=== PATIENT | male | born 1970 | race Caucasian/White ===

== ENCOUNTER 2021-01-15 10:33 | Outpatient (CLI) | payer BC, SELFPAY ==
[2021-01-15 11:41] LABS: Basophils Absolute Auto 0.1 K/mm3 (0.0-0.1); Basophils Percent Auto 0.9 % (0.2-1.2); Eosinophils Absolute Auto 0.1 K/mm3 (0-0.3); Eosinophils Percent Auto 1.4 % (0-4.4); Hematocrit 42.5 % (42.0-52.0); Hemoglobin 13.9 g/dL (14.0-18.0); Immature Granulocyte Absolute 0.02 K/mm3 (0.00-0.031); Immature Granulocyte Percent A 0.3 % (0-0.5); Lymphocytes Absolute Auto 1.63 K/mm3 (0.9-3.2); Lymphocytes Percent Auto 23.3 % (18.3-44.2); Mean Corpuscular HGB Conc 32.7 g/dl (32-36); Mean Corpuscular Hemoglobin 29.3 pg (26-34); Mean Corpuscular Volume 89.7 fl (80-100); Mean Platelet Volume 9.1 fl (7.4-10.4); Monocytes Absolute Auto 0.7 K/mm3 (0.1-0.6); Monocytes Percent Auto 9.4 % (2.6-8.5); Neutrophils Absolute Auto 4.5 K/mm3 (1.3-6.7); Neutrophils Percent Auto 64.7 % (45.5-73.1); Platelet Count Result 355 k/mm3 (150-375); Red Blood Count 4.74 M/mm3 (4.6-6.20); Red Cell Distribution Width 11.7 % (11.5-14.5)
[2021-01-15 11:51] LABS: Alanine Aminotransferase 18 U/L (4-50); Albumin Level 4.5 g/dL (3.5-5.1); Alkaline Phosphatase 61 U/L (38-126); Amylase 43 U/L (30-110); Anion Gap 7 mmol/L (8-16); Aspartate Amino Transferase 25 U/L (17-59); Bilirubin,Total 0.3 mg/dL (0.2-1.3); Blood Urea Nitrogen 16 mg/dL (9-20); Calcium 9.9 mg/dL (8.4-10.2); Carbon Dioxide 32 mmol/L (22-30); Chloride 101 mmol/L (98-107); Estimated Glomerular Filt Rate > 60; Glucose 91 mg/dL (75-110); Lipase 104 U/L (23-300); Potassium 4.2 mmol/L (3.4-5.0); Sodium 140 mmol/L (137-145)
[2021-01-15 11:55] LABS: Add Urine Microscopic? YES; Amorphous Sediment Urine Moderate; Appearance Urine Cloudy (Clear); Bacteria Urine Trace /hpf; Bilirubin Urine Negative (Negative); Blood Urine Negative (Negative); Color Urine Amber (Yellow); Glucose Urine UA Negative (Negative); Ketones Urine Negative (Negative); Leukocyte Esterase Ur Negative LEU/UL (NEGATIVE); Mucus Urine Rare /lpf; Nitrate Urine Negative (Negative); Protein Urine 1+ mg/dL (Negative); RBC Urine 0-2 /hpf (0-2); WBC Urine 0-3 /hpf (0-3)
[2021-01-15 12:21] LABS: Thyroid Stimulating Hormone 0.814 uIU/mL (0.465-4.680)
== END 2021-01-15 10:34 | disposition home or self-care (01) ==
PROVIDERS: PCP Family Medicine; Visit Provider Physician Assistant
DX: R10.9 Unspecified abdominal pain (principal)
CPT/HCPCS: 36415; 80053; 81001; 82150; 83690; 84443; 85025; 87086

== ENCOUNTER → 2021-04-06 10:17 | Outpatient (CLI) | payer BC, SELFPAY ==
--- NOTE | ~2021-04-06 | US_ITS ---
EXAMINATION: US abdomen complete EXAM DATE: 04/06/2021 10:52 INDICATION: R10.9 - Unspecified abdominal pain. TECHNIQUE: Multiple grayscale and Doppler images of the complete abdomen were obtained (by a technolo gist who performed the scan) and subsequently reviewed. There is no prior study for comparison. FINDINGS: The abdominal aorta is normal in caliber. Visualized portion IVC is patent. The pancreatic head a nd body are normal in appearance. The pancreatic tail is not visualized. The liver has normal echogenicity and contour. There are no focal liver lesions identified. There is no evidence of intrahepatic biliary duct dilation. Portal venous flow was seen in the hepatopedal , normal direction and has normal Doppler waveform. Common bile duct measures 5 mm, which is normal. The gallbladder wall is normal in thickness, with ex pected amount of distention. No sonographic evidence of pericholecystic fluid. Scattered tiny gallb ladder polyps not likely clinically significant, measuring up to 4 mm in size. Technologist performi ng exam reports patient did not demonstrate sonographic Block's sign. Please note that this sign is less reliable in patients who have received pain medication. Right kidney: There is normal contour and echogenicity. It measures 11.1 x 4.4 x 4.9 centimeters. There are no focal renal lesions identified. There is no hydronephrosis. Left kidney: There is normal contour and echogenicity. It measures 10.5 x 6.0 x 4.3 centimeters. T here are no focal renal lesions identified. There is no hydronephrosis. The spleen measures 10 centimeters and is morphologically normal. IMPRESSION: 1. Tiny gallbladder polyps not likely clinically significant. 2. Otherwise unremarkable exam. Reviewed, dictated and finalized at location A.
== END ==
PROVIDERS: Visit Provider Physician Assistant
DX: R10.9 Unspecified abdominal pain (principal); R11.2 Nausea with vomiting, unspecified
CPT/HCPCS: 76700

== ENCOUNTER 2022-04-20 15:53 | Outpatient (CLI) | payer BC, SELFPAY ==
--- NOTE | ~2022-04-20 | XR_ITS ---
XR elbow LT min 3V DATE: 04/20/2022 16:14 INDICATION: Injury/contusion of posterior elbow 2 weeks ago TECHNIQUE: 4 views COMPARISON: None FINDINGS: No fracture or dislocation, periosteal reaction or bone destruction. IMPRESSION: Negative Reviewed, dictated and finalized at location A. IMPRESSION: Negative
== END 2022-04-20 15:54 | disposition home or self-care (01) ==
PROVIDERS: PCP Family Medicine; Visit Provider Nurse Practitioner Family
DX: S50.00XA Contusion of unspecified elbow, initial encounter (principal); M25.422 Effusion, left elbow
CPT/HCPCS: 73080

== ENCOUNTER 2022-09-19 14:23 | Outpatient (CLI) | payer BC, SELFPAY ==
[2022-09-19 14:56] LABS: Influenza Control Positive
== END 2022-09-19 14:24 | disposition home or self-care (01) ==
LOC: ANHLAB 14:25
PROVIDERS: Physician Assistant; PCP Family Medicine; Visit Provider Family Medicine
DX: R05.9 Cough, unspecified (principal); R68.89 Other general symptoms and signs
CPT/HCPCS: 87804

== ENCOUNTER 2024-05-27 16:26 | Emergency (ER) | payer BC, SELFPAY ==
[2024-05-27 16:36] VITALS: BP 120/75; PULSE 79; RESP 14; TEMP 36.4; O2SAT 99
--- NOTE | 2024-05-27 16:47 | ED.GENADULT ---
HPI - General Adult General Chief complaint: Unspecified Stated complaint: Heart Problems Source: patient Mode of arrival: ambulatory Limitations: no limitations History of Present Illness HPI narrative: 53 y/o male presents with c/o intermittent palpitations x7-10 days. Endorses a flutter in his chest that will last about a second and is sporadic, not associated with activity, rest, or recumbency. The fluttering occurs approximately 6-10 times a day. Denies increased stress or recent illness. He denies significant caffeine intake, smoking or recreational drug use. and drinks socially on the weekends. He denies any chest/jaw/shoulder/back pain, shortness of breath, cough, nausea/vomiting, sweating or dizziness. Related Data Home Medications Medication Instructions Recorded Confirmed No Home Medications 05/27/24 05/27/24 Allergies Allergy/AdvReac Type Severity Reaction Status Date / Time No Known Allergies Allergy Mild Verified 05/27/24 16:34 Review of Systems Review of Systems: CONSTITUTIONAL: Denies body aches, fever, chills, or sweats. EYES: Denies visual changes, redness, or discharge. ENT: Denies rhinorrhea, congestion, sore throat, or otalgia. CARDIOVASCULAR: Denies chest pain or edema. Reports palpitations. RESPIRATORY: Denies cough or dyspnea. GASTROINTESTINAL: Denies abdominal pain, nausea, vomiting, or diarrhea. SKIN: Denies rash, itching, or wounds. MUSCULOSKELETAL: Denies back pain, joint pain, or myalgia. NEUROLOGIC: Denies headache, dizziness, numbness, tingling, or weakness. All systems reviewed & are unremarkable except as noted in HPI and below PMFSH Past Medical History Medical History (Updated 05/27/24 @ 17:27 by Iza Atkins APRN) Ankylosing spondylitis Anxiety HLA-B27 positive Social History Social History Smoking status: Never smoker Second hand tobacco smoke exposure: No Alcohol intake: current Drinks per week: 4 Substance use: never Substance use type: does not use Living arrangements: with family Occupation/Education: occupation Gender identity (if verbalized by the patient): Male Comments At time of signature, I have reviewed and agree with nursing past medical, surgical, social and family history unless otherwise noted. Please see nursing chart for further information. There is no relevant family history pertinent to the presenting complaint Exam Narrative: GENERAL: Well-appearing, well-nourished, and in no acute distress. HEAD: Normocephalic, atraumatic. EYES: EOMI. No redness or drainage. Conjunctivae normal. ENT: Mucous membranes pink and moist. No rhinorrhea. NECK: Normal AROM. Supple. CHEST: No respiratory distress. Clear to auscultation. HEART: Regular rate and rhythm. No murmur appreciated. Normal peripheral pulses. EXTREMITIES: Normal range of motion. No edema. SKIN: Warm, dry, no rash. Capillary refill normal. Normal skin turgor. NEURO: No focal deficits. Alert and oriented x3. Gait steady. PSYCH: Normal affect. Course Course Emergency Course: Patient is aware of diagnosis, understands and agrees to treatment plan. Anticipatory guidance given. Patient agrees to follow-up as directed and is aware of reasons to seek care at the emergency department. Portions of this record may have been created with voice recognition software Level of Care: Express Care Visit Vital Signs Vital signs: Vital Signs Temperature 97.6 F 05/27/24 16:36 Pulse Rate 79 05/27/24 16:36 Respiratory Rate 14 05/27/24 16:36 Blood Pressure 120/75 05/27/24 16:36 Pulse Oximetry 99 05/27/24 16:36 Oxygen Delivery Room Air 05/27/24 16:36 Temperature 97.6 F 05/27/24 16:36 Pulse Rate 79 05/27/24 16:36 Respiratory Rate 14 05/27/24 16:36 Blood Pressure 120/75 05/27/24 16:36 Pulse Oximetry 99 05/27/24 16:36 Oxygen Delivery Room Air 05/27/24 16:36
--- NOTE | 2024-05-27 17:13 | ECG_ITS ---
Test Date: 2024-05-27 16:50:33 Measurements Intervals Savage Rate: 70 P: 67 OH: 166 QRS: 50 QRSD: 108 T: 33 QT: 372 QTc: 402 Interpretive Statements SINUS RHYTHM LOW QRS VOLTAGE IN PRECORDIAL LEADS INCOMPLETE RIGHT BUNDLE BRANCH BLOCK BORDERLINE ECG No previous ECG available for comparison Electronically Signed On 05-28-2024 06:18:17 CDT by Say Stern D.O.
== END 2024-05-27 17:12 | disposition home or self-care (01) ==
PROVIDERS: Emergency Provider Nurse Practitioner Family; PCP Family Medicine
DX: R00.2 Palpitations (principal); M45.9 Ankylosing spondylitis of unspecified sites in spine
CPT/HCPCS: 93005; 99213; G0463

== ENCOUNTER 2024-06-17 11:02 | Outpatient (CLI) | payer BC, SELFPAY ==
--- NOTE | 2024-06-20 16:31 | WPDHOLTEREM ---
Holter/Event Monitor Holter/Event Monitor Date of procedure: 06/17/24 Holter/Event Procedure: 48 Hr Holter Monitor Indications: Palpitations Conclusion: 1. 48 hour holter monitor on 06/17/24. 2. Underlying rhythm is sinus rhythm. HR range 51-109 bpm; average HR 73 bpm. 3. There are 16 premature supraventricular complexes and 1 supraventricular couplet. No supraventricular tachycardia. 4. There are 197 premature ventricular complexes and ventricular couplet. No ventricular tachycardia. 5. No sinoatrial or atrioventricular blocks. No significant pauses greater than 2 seconds. 6. Patient reports symptoms of flutter, skipped beat which demonstrate sinus rhythm, HR range 66-87 bpm and 2 episodes with PVC.
== END 2024-06-17 11:03 | disposition home or self-care (01) ==
LOC: ANHCARD 11:05
PROVIDERS: PCP Family Medicine; Visit Provider Physician Assistant Medical
DX: R00.2 Palpitations (principal)
CPT/HCPCS: 93225; 93226

== ENCOUNTER 2024-07-12 08:34 | Emergency (ER) | payer BC, SELFPAY ==
[2024-07-12 08:39] VITALS: BP 109/77; PULSE 80; RESP 16; TEMP 36.3; O2SAT 99
--- NOTE | 2024-07-12 08:40 | ED.URI ---
HPI - URI/Sore Throat General Chief Complaint: Upper Respiratory Infection Stated Complaint: SORE THROAT Time Seen by Provider: 07/12/24 08:40 Source: patient Mode of arrival: ambulatory Limitations: no limitations History of Present Illness HPI Narrative: Jagdeep is a 54-year-old male patient presenting to the clinic today with complaints of sore throat, nasal congestion, and some body aches. He reports symptoms started on Monday. Has taken 2 at home COVID test 1 on Monday and 1 on and both were negative. He would like strep, COVID, and influenza testing today in the office. He denies any chest pain or shortness of breath. Rates the body aches is 6/10 currently. MD elicited complaint: sore throat and nasal congestion Related Data Home Medications Medication Instructions Recorded Confirmed metoprolol succinate 25 mg 7.5 mg PO DAILY 07/12/24 07/12/24 tablet,extended release 24 hr Allergies Allergy/AdvReac Type Severity Reaction Status Date / Time No Known Allergies Allergy Mild Verified 07/12/24 08:48 Review of Systems Review of Systems: Pertinent positives per HPI. Patient denies any fever, chills, rash, headache, visual changes, dizziness, cough, shortness of breath, chest pain, palpitations, nausea, vomiting, diarrhea, constipation, abdominal pain, or any urinary issues. [facility] Past Medical History Medical History Ankylosing spondylitis Anxiety HLA-B27 positive Social History Social History Smoking status: Never smoker Second hand tobacco smoke exposure: No Alcohol intake: current Drinks per week: 4 Substance use: never Substance use type: does not use Do You Feel Safe in your Home?: Yes Lack of Transportation: No Lack of Food: Never True Current Housing: I Have Housing Concerned About Future Housing: No Difficulty Paying Gas/Electric Bills: No Difficulty Paying for Meds: No Currently Unemployed: No Education: Master's Degree or Higher Difficulty w/ Childcare or Family Care: No Living arrangements: with family Occupation/Education: occupation Gender identity (if verbalized by the patient): Male Comments At the time of my signature, I reviewed and agree with the nursing past medical, surgical, social, and family history. There is no relevant family history pertinent to the patient complaint. Exam Narrative: General: Well-developed, well nourished, in no apparent distress Head: Normocephalic, atraumatic Eyes: Pupils equally round and reactive to light bilaterally, EOM intact, sclera and conjunctive clear, no discharge, lids normal Ears: TMs intact and clear, ear canals clear, no drainage, grossly hearing normal. Nose: Nares patent, clear nasal discharge, no inflammation, no sinus tenderness. Mouth: Oral pharynx mildly red without lesions or masses, good dentition, MMM. Neck: Supple, trachea midline, no enlargement of anterior or posterior cervical nodes, no thyroid masses or goiter palpable. Cardio: Regular rate and rhythm, s1 and s2 normal, no murmur appreciated. Resp: Clear to auscultation bilaterally, no rhonchi, rales, wheezing or rubs Course Course Emergency Course: Portions of this record may have been created with voice recognition software. Level of Care: Express Care Visit Vital Signs Vital signs: Vital signs reviewed MDM - URI/Sore Throat MDM Narrative Medical decision making narrative: At the time of visit patient is resting comfortably on the exam table. Patient appears to be nontoxic. Labs: COVID testing, influenza, and strep test were performed in the clinic today. COVID testing was positive. Strep and influenza testing was negative. We will send strep for culture. Plan: I suspect patient has COVID. Supportive measures were discussed with the patient and they voiced understanding discharge i
[2024-07-12 08:56] LABS: EDSTREPNEGPOS1 Negative (Negative)
[2024-07-12 09:00] LABS: EDCOVIDSCREEN Positive (Negative); EDINFLUASCREEN Negative (Negative); EDINFLUBSCREEN Negative (Negative)
== END 2024-07-12 09:10 | disposition home or self-care (01) ==
PROVIDERS: Emergency Provider Nurse Practitioner Family; PCP Family Medicine
DX: U07.1 COVID-19 (principal)
CPT/HCPCS: 87081; 87635; 87804; 87880; 99213; G0463

== ENCOUNTER 2024-12-20 05:12 | Day surgery (SDC) | payer BC, SELFPAY ==
[2024-12-05 09:27] VITALS: BMI 22.3
--- OUTSIDE RECORDS SUMMARY | 2024-12-20 05:15 | XMS_ITS | Clinical Summary ---
Author Organization [facility] [address] [facility] [address] Address [address] [place] [phone] Phone Care Team Providers Care Hearing Aid Assistant Name Role Phone Piter Cedeno MD Primary Care Provider Allergies No known active allergies Medications metoprolol XL (TOPROL-XL) 25 mg extended release tablet TAKE HALF A TABLET BY MOUTH ONCE DAILY 4 Active triamcinolone (KENALOG) 0.1 % cream Apply to affected area 1-2 times daily as needed. Avoid face and groin. 30 g 5 Active predniSONE (DELTASONE) 20 mg tablet Take 1 tablet (20 mg) by mouth daily for 5 days 5 tablet 5 11/28/19 25 Active Problems Problem Noted Date Diagnosed Date Chronic right shoulder pain 02/25/2022 Assessment & Plan (08/30/2022 3:37 PM CDT): Improved though not resolved, he will reschedule ortho follow up to review mri findings Assessment & Plan (02/25/2022 10:18 AM CDT): Follow up with ortho as planned, await mri. Will request records. Ankylosing spondylitis 07/25/2017 Overview (07/23/2018): Per MRI revealing fusion of SI joints. Positive HLA B27. Has stiffness>pain in mid/low back. Also with migratory peripheral joint pain in knees, feet with no synovitis. Previously on naproxen, ibuprofen, diclofenac with no benefit. Has flexeril 5 mg qHS which he uses prn which helps but he rarely uses. Schobers exam 10-14 cm, Occipitut to wall 0 cm. Has been doing PT which has helped with stiffness some. On SSZ 500 mg bid Pt wanting to hold off on anti-TNF inhib unless symptoms progress. Assessment & Plan (09/12/2024 4:05 PM BALLOON PILOT): Denies inflammatory sounding joint pain. He self dc'd his sulfasalazine in November of 2019 due to concerns about the long-term use of this medication. Overall has remained stable off treatment. He wishes to remain off treatment and monitor. At this time do recommend obtaining updated imaging to look for any signs of progression. Continue exercise/stretching routine. Plan for follow up in 1 year or sooner as needed should symptoms warrant. Assessment & Plan (09/05/2023 4:46 PM BALLOON PILOT): Denies inflammatory sounding joint pain. He self dc'd his sulfasalazine in November of 2019 due to concerns about the long-term use of this medication. Overall has remained stable off treatment. He wishes to remain off treatment and monitor. Continue exercise/stretching routine. Will now plan for follow up in 1 year or sooner as needed should symptoms warrant. Assessment & Plan (08/30/2022 3:37 PM CDT): Denies inflammatory sounding joint pain. He self dc'd his sulfasalazine in November of 2019 due to concerns about the long-term use of this medication. Overall has remained stable off treatment for 2.5 years. He wishes to remain off treatment and monitor. Continue exercise/stretching routine. Will now plan for follow up in 1 year or sooner as needed should symptoms warrant. Assessment & Plan (02/25/2022 10:17 AM CDT): Denies inflammatory sounding joint pain. Uncertain of the etiology of this rib pain, however he states that overall it is mild and does not feel it warrants anything additional. He self dc'd his sulfasalazine ~2 years ago due to concerns about the long-term use of this medication, overall feels stable. He wishes to remain off treatment and monitor closely, he will call if symptoms flare. Continue exercise/stretching routine. Follow up 6 months or sooner as needed. Assessment & Plan (08/17/2021 3:40 PM CDT): Prior to the last month and a half, he felt stable without significant pain or stiffness. He self dc'd his sulfasalazine >18 months ago due to concerns about the long-term use of this medication. Discussed risk of a flare. He wishes to remain off treatment and monitor closely, he will call if symptoms persist. Continue exercise/stretching routine. Follow up 6 months or sooner as needed. Assessment & Plan (02/09/2021 4:10 PM CDT): Overall remains stable since last visit. Amol's improved compared to last visit. Normal occiput to wall. He self dc'd his sulfasalazine >12 months ago due to concerns about the long-term use of this medication. Discussed risk of a flare. He wishes to remain off treatment and monitor closely, he will call for any recurrence of pain or stiffness. Continue exercise/stretching routine. Follow up 6 months or sooner as needed. Assessment & Plan (08/11/2020 3:32 PM CDT): Overall remains stable since last visit. Amol's slightly reduced today compared to prior, though he reports feeling more stiff/sore today related to kayaking over the weekend. Normal occiput to wall. He self dc'd his sulfasalazine 8 months ago due to concerns about the long-term use of this medication. Discussed risk of a flare. He wishes to remain off treatment and monitor closely, he will call for any recurrence of pain or stiffness. Continue exercise/stretching routine. Flu vaccine today. Follow up 6 months or sooner as needed. Assessment & Plan (04/21/2020 4:00 PM CDT): Overall remains stable since last visit. Amol's stable and normal occiput to wall. He self dc'd his sulfasalazine after last visit and remains uncertain at this time of whether he would wish to resume this as he was felt very stable. He also expresses concerns about the long-term use of this medication. Discussed drug holidays and risk of a flare. He would like to consider this some and will let us know what he decides. If he remains off treatment, then he will monitor closely and call for any recurrence of pain or stiffness. Continue exercise/stretching routine. Will obtain labs as below. Follow up 4 months or sooner as needed. Assessment & Plan (12/24/2019 4:22 PM BALLOON PILOT): Overall remains stable since last visit. Amol's fairly stable at 14.3 cm, normal occiput to wall. Hurt his back over the weekend, taking Advil and conservative measures with some benefit, will use Flexeril 5 mg qHS prn as well. It is notable that he has been taking only 500 mg sulfasalazine daily for an uncertain period of time, he would like to increase to the prescribed dose of 1000 mg daily for a few months to see if this provides greater benefit. Continue exercise/stretching routine. Will obtain labs as below. Follow up 4 months or sooner as needed. Assessment & Plan (08/27/2019 4:28 PM CDT): Is doing well clinically with minimal complaints at baseline other than occasional stiffness in mid/low back. Amol's stable, normal occiput to wall. In the last two weeks new discomfort in bilateral feet for which he was prescribed a Medrol dosepak with modest benefit; by exam he has no reproducible tenderness and no synovitis. Discussed that the lack of significant response to steroids goes against inflammatory etiology, though may not have been sufficient dose/course. Will monitor for now, if pain persists pt states that his PCP had planned xrays, discussed that we may also consider a foot/ankle ultrasound to look for inflammatory changes --- he will call if symptoms persist/worsen after completing the Medrol Dosepak. Continue sulfasalazine 1000 mg daily. Continue flexeril 5 mg prn which he rarely requires. Continue exercise/stretching routine. Will obtain labs as below. Follow up 4 months or sooner as needed. Assessment & Plan (04/23/2019 4:54 PM CDT): Is doing well clinically with minimal complaints at baseline other than occasional stiffness in mid/low back. Amol's stable, normal occiput to wall. In the last week new L shoulder discomfort which pt states is mild and he would rather monitor for now, discussed judicious use of naproxen if needed - he will call/follow up if the pain persists. Continue sulfasalazine 1000 mg daily. Continue flexeril 5 mg prn which he rarely requires. Continue exercise/stretching routine. Will obtain labs as below. Follow up 4 months or sooner as needed. Assessment & Plan (11/26/2018 2:32 PM BALLOON PILOT): Is doing well clinically with minimal complaints other than occasional stiffness in mid/low back. Denies peripheral joint complaints. Is doing yoga and stretching exercises routinely. Exam is unremarkable and is noted Amol's exam is 10-15 cm which is stable from prior. Continue sulfasalazine 1000 mg daily. Continue flexeril 5 mg prn which he rarely requires. Is noted pt not requiring any analgesics. Continue exercise/stretching routine. Will obtain labs as below. Follow up 4 months. Assessment & Plan (07/23/2018 2:46 PM CDT): Is doing well clinically with minimal complaints other than occasional stiffness in mid/low back. Denies peripheral joint complaints. Is doing yoga and stretching exercises routinely. Exam is unremarkable and is noted Amol's exam is 10-15 cm which is improved by 0.5 cm compared to last visit. Continue sulfasalazine 1000 mg daily. Continue flexeril 5 mg prn which he rarely requires. Is noted pt not requiring any analgesics. Continue exercise/stretching routine. Will obtain labs as below. Follow up 4 months. Assessment & Plan (03/29/2018 3:13 PM CDT): He remains stable clinically with minimal complaints other than occasional stiffness is his low back. He is doing very well sulfasalazine which was decreased to 500 mg b.i.d. as he was doing so well. He does have Flexeril although rarely takes this. Is noted Amol's exam is stable at 14.5 cm which is slightly improved from last visit. Continue sulfasalazine 500 mg b.i.d.. Could consider addition of an oral NSAID although as he has tried naproxen diclofenac and ibuprofen in the past with no benefit will defer at this time. Cont flexeril 5 mg prn which he rarely requires. Obtain labs as below. Follow-up in 3 months. Encounters Date Type Department Care Team Description 11/23/2024 7:30 PM BALLOON PILOT Office Visit [facility] at [address] [phone] Kirsten Joya PA Rash (Primary Dx) from Last 3 Months Immunizations Immunization Administration Dates Next Due Influenza, Quadrivalent, Niya l Culture-based MDCK, Antibiotic Free, Intramuscular 08/11/2020,08/27/2019 Social History Tobacco Use Types Packs/Day Years Used Date Smoking Tobacco: Never Smokeless Tobacco: Never Tobacco Cessation:Counseling Given: Not Answered Alcohol Use Standard Drinks/Week Comments Yes 0 (1 standard drink = 0.6 oz pur e alcohol) Sex and Gender Information Value Date Recorded Sex Assigned at Not on file Legal Sex Male 10:14 AM BALLOON PILOT Gender Identity Not on file Sexual Orientation Not on file Obstetrics History Last Filed Vital Signs Vital Sign Reading Time Taken Comments Blood Pressure 120/80 11/23/2024 7:48 PM BALLOON PILOT Pulse 76 11/23/2024 7:48 PM BALLOON PILOT Temperature 37.1 C (98.8 F) 11/23/2024 7:48 PM BALLOON PILOT Respiratory Rate 18 11/23/2024 7:48 PM BALLOON PILOT Oxygen Saturation 99% 11/23/2024 7:48 PM BALLOON PILOT Inhaled Oxygen Concentration - - Weight 76.9 kg (169 lb 9.6 oz) 11/23/2024 7:48 P M BALLOON PILOT Height 181.6 cm (5' 11.5 ) 11/23/2024 7:48 PM CS T Body Mass Index 23.33 11/23/2024 7:48 PM BALLOON PILOT Plan of Treatment Health Maintenance Due Date Last Done Comments Colon Cancer Screening-Colonoscopy 1968 Depression Screening 1968 DTaP/Tdap/Td Vaccine (1 - Tdap) 1979 Hepatitis B Screening 1986 Regular Well Visit/Exam 18-64 1986 Zoster Vaccine (1 of 2) 2018 Prostate Cancer Screening-PSA 02/26/2024 02/25/2022 Influenza Vaccine (#1) 2024 08/11/2020, 2018 Hepatitis C Screening Completed 09/27/2016 , 09/27/2016, 09/27/2016, Additional history exists Pneumococcal vaccine <65 Aged Out No longer eligible based on patient's age to complete this topic Procedures Procedure Name Priority Date/Time Associated Diagnosis Comments PSA SCREEN Routine 02/25/2022 9:39 AM CDT Screening PSA (prostate specific antigen) HEPATITIS PANEL, ACUTE Routine 09/27/2016 2:44 PM BALLOON PILOT from Last 3 Months or Most Recently Relevant to Health Maintenance Results * PSA screen (02/25/2022 9:39 AM CDT) [facility] PSA 0.91 < OR = 4.00 ng/mL [facility] Comment: The total PSA value from this assay system is standardized against the WHO standard. The test result will be approximately 20% lower when compared to the equimolar-standardized total PSA ([facility] [place]). Comparison of serial PSA results should be interpreted with this fact in mind. This test was performed using the Siemens chemiluminescent method. Values obtained from different assay methods cannot be used interchangeably. PSA levels, regardless of value, should not be interpreted as absolute evidence of the presence or absence of disease. Blood specimen (specimen) 02/25/2022 9:39 AM CDT 02/25/2022 9:39 AM CDT [facility] BLOOD ORDERABLES Louise l Result [facility] [address] [place] [address] * Hepatitis panel, acute (09/27/2016 2:44 PM BALLOON PILOT) [facility] Hep A IgM NON-REACT BREANNA NON-REACT BREANNA [facility] HISTORICAL RESULTS Comment: Test performed at [facility] [place] [address] [facility] [place] [address] Director: KAY SQUIRES DO,MPH 09/27/2016 2:44 PM BALLOON PILOT Renzo Vargas MD LAB MICROBIOLOGY - GENER AL ORDERABLES Final Result [facility] HISTORICAL RESULTS from Last 3 Months or Most Recently Relevant to Health Maintenance Insurance [facility] Member Subscriber Plan / Payer ( fective 2008-Present) Name:Seth Mitchell Relation to Subscriber:Self Name:Seth Mitchell Payer ID:[id number] (NAIC) Group ID:[id number] Type:BC [employer] Address: [facility] [id number] [place] [id number] Care Teams Hearing Aid Assistant Relationship Specialty Start Date End Date Piter Cedeno MD [address] [place] [id number] PCP - General 01/27/17
--- OUTSIDE RECORDS SUMMARY | 2024-12-20 05:15 | XMS_ITS | Clinical Summary ---
Author Organization [facility] Address [address] [place] [address] Care Team Providers Care Granite Setter Name Role Phone Unavailable Primary Care Provider Unavailabl e Social History Tobacco Use Types Packs/Day Years Used Date Smoking Tobacco: Never Assessed Sex and Gender Information Value Date Recorded Sex Assigned at Not on file Legal Sex Male 5:33 PM CDT Gender Identity Not on file Sexual Orientation Not on file Plan of Treatment Health Maintenance Due Date Last Done Comments Colorectal Cancer Screening Colonoscopy (10 Years) 1968 Annual Physical 1971 Hepatitis C 1986 DTaP, Tdap and Td Vaccines ( 1 - Tdap) 1987 Hepatitis B Vaccines (1 of 3 - 19+ 3-dose series) 1987 Zoster Vaccines (1 of 2) 2018 COVID-19 Vaccine (2023-2 5 season) 2024 Influenza Adult (#1) 2024 Meningococcal B Vaccine Aged Out No l onger eligible based on patient's age to complete this topic Meningococcal Vaccine Aged Out No alvaro elliot eligible based on patient's age to complete this topic Pneumococcal Vaccine: Pediat rics (0 to 5 Years) and At-Risk Patients (6 to 64 Years) Aged Out No longer eligible b ased on patient's age to complete this topic RSV Immunizations Under 20 Months Aged Out No longer eligible based on patient's age to complete this topic
--- OUTSIDE RECORDS SUMMARY | 2024-12-20 05:15 | XMS_ITS | Referral Summary ---
Author Organization [facility] [address] [facility] Address [address] [place] [phone] Phone Care Team Providers Care Records Management Analyst Name Role Phone Piter Cedeno MD Primary Care Provider Encounters Date Type Department Care Team Description 11/23/2024 7:30 PM DOWN FILLER Office Visit [facility] at [address] [phone] Kirsten Joya PA Rash (Primary Dx) from Last 3 Months Allergies No known active allergies Medications metoprolol [...] progress. Assessment & Plan (09/12/2024 4:05 PM DOWN FILLER): Denies inflammatory sounding joint pain. He self [...] warrant. Assessment & Plan (09/05/2023 4:46 PM DOWN FILLER): Denies inflammatory sounding joint pain. He self [...] needed. Assessment & Plan (12/24/2019 4:22 PM DOWN FILLER): Overall remains stable since last visit. Amol's [...] other than occasional stiffness in mid/low back. Maol's stable, normal occiput to wall. In the [...] needed. Assessment & Plan (11/26/2018 2:32 PM DOWN FILLER): Is doing well clinically with minimal complaints [...] labs as below. Follow-up in 3 months. Immunizations Immunization Administration Dates Next Due Influenza, [...] on file Legal Sex Male 10:14 AM DOWN FILLER Gender Identity Not on file Sexual Orientation Not on file Last Filed Vital Signs Vital Sign Reading Time Taken Comments Blood Pressure 120/80 11/23/2024 7:48 PM DOWN FILLER Pulse 76 11/23/2024 7:48 PM DOWN FILLER Temperature 37.1 C (98.8 F) 11/23/2024 7:48 PM DOWN FILLER Respiratory Rate 18 11/23/2024 7:48 PM DOWN FILLER Oxygen Saturation 99% 11/23/2024 7:48 PM DOWN FILLER Inhaled Oxygen Concentration - - Weight 76.9 kg (169 lb 9.6 oz) 11/23/2024 7:48 P M DOWN FILLER Height 181.6 cm (5' 11.5 ) 11/23/2024 7:48 PM CS T Body Mass Index 23.33 11/23/2024 7:48 PM DOWN FILLER Plan of Treatment Not on file Procedures Procedure Name Priority Date/Time Associated Diagnosis Comments PSA SCREEN Routine 02/25/2022 9:39 AM CDT Screening PSA (prostate specific antigen) HEPATITIS PANEL, ACUTE Routine 09/27/2016 2:44 PM DOWN FILLER from Last 3 Months or Most Recently Relevant to Health Maintenance Results * PSA screen (02/25/2022 9:39 AM CDT) [facility] PSA 0.91 < OR = 4.00 ng/mL [facility] Comment: The total PSA value from this assay system is standardized against the WHO standard. The test result will be approximately 20% lower when compared to the equimolar-standardized total PSA ([place] [place]). Comparison of serial PSA results should be [...] [facility] BLOOD ORDERABLES Louise l Result Performing Organization Address City/[facility]/ZIP Co de Phone Number [facility] [employer] [phone] * Hepatitis panel, acute (09/27/2016 2:44 PM DOWN FILLER) [facility] [address] Hep A IgM NON-REACT BREANNA NON-REACT BREANNA [facility] HISTORICAL RESULTS Comment: Test performed at [employer] [place] [id number] [place] [address] Director: KAY SQUIRES DO,MPH 09/27/2016 2:44 PM DOWN FILLER Renzo Vargas MD LAB MICROBIOLOGY - GENER AL ORDERABLES Final Result [facility] HISTORICAL RESULTS from Last 3 Months or Most Recently Relevant to Health Maintenance Insurance [facility] [employer] [facility] FED[employer]AL Care Teams Records Management Analyst Relationship Specialty Start Date End Date Piter Cedeno MD [address] [facility] [address] [place] [address] PCP - General 01/27/17
[2024-12-20 08:18] VITALS: BP 104/79; PULSE 81; RESP 20; TEMP 36.6; O2SAT 100; BMI 22.2
[2024-12-20] MEDS: LACTATED RINGERS 1,000 ML 150 ML IV CONT (08:31)
--- NOTE | 2024-12-20 08:42 | WPDANESEPPF ---
Anes - Initial Pre Proc Eval Procedure: Operation Date: 12/20/24 09:30 Proposed Procedures p Screening Colonoscopy - Brando Hutchinson MD Date/Time: 12/20/24 08:42 Surgeon: Brando Hutchinson MD Pre Op Diagnosis: screening malignant neoplasm of colon Patient Data Age: 54 Gender: M Height: 1.8 m Weight: 72.3 kg Last Vital Signs Temp 36.6 C 12/20/24 08:18 Pulse 81 12/20/24 08:18 Resp 20 12/20/24 08:18 BP 104/79 12/20/24 08:18 Pulse Ox 100 12/20/24 08:18 O2 Del Method Room Air 12/20/24 08:18 Allergies Allergy/AdvReac Type Severity Reaction Status Date / Time No Known Allergies Allergy Mild Verified 12/20/24 08:18 Home Medications ?Medication ?Instructions ?Recorded ?Confirmed ?Type metoprolol succinate 25 mg 7.5 mg PO DAILY 07/12/24 12/20/24 History tablet,extended release 24 hr Patient hx anesthesia problems: none Family hx anesthesia problems: none Results Review: All pre-operative results and documents have been reviewed as part of the pre-operative evaluation. [facility] Past Medical History Medical History (Updated 12/20/24 @ 09:08 by Brando Hutchinson MD) Colon cancer screening DEEP (obstructive sleep apnea) Rheumatoid arthritis PVC (premature ventricular contraction) HLA-B27 positive Anxiety Ankylosing spondylitis Social History Social History Smoking status: Never smoker Second hand tobacco smoke exposure: No Alcohol intake: current Drinks per week: 4 Substance use: never Substance use type: does not use Do You Feel Safe in your Home?: Yes Lack of Transportation: No Lack of Food: Never True Current Housing: I Have Housing Concerned About Future Housing: No Difficulty Paying Gas/Electric Bills: No Difficulty Paying for Meds: No Currently Unemployed: No Education: Master's Degree or Higher Difficulty w/ Childcare or Family Care: No Living arrangements: with family Occupation/Education: occupation Gender identity (if verbalized by the patient): Male Anes - Eval Final PreProcedure Day of Procedure 12/20/24 08:42 Patient weight: normal Heart: regular rate and rhythm Lungs: clear to auscultation and normal air movement Airway: Mallampati scale class II Neurological: alert and oriented Last oral intake: >/= 8 hours ASA classification: III Emergent: no Anesthetic plan: proceed Anesthesia type and monitoring: general GIVS and standard monitoring Results Review: All pre-operative results and documents have been reviewed as part of the pre-operative evaluation. Informed Consent: The patient's anesthetic plan and its attendant risks and benefits were discussed with the patient/family/POA. Questions were solicited and answers provided to the satisfaction of the patient/family/POA.
--- NOTE | 2024-12-20 09:07 | PM.HPGS ---
History of Present Illness History of Present Illness Consent: Risks, benefits, and alternatives have been discussed and questions answered. Patient agrees to proceed with procedure. Chief complaint: screening malignant neoplasm of colon Narrative: Seth Mitchell is a 54 year old male here for screening colonoscopy, last one 2013 Review of Systems Review of Systems: All systems reviewed & are unremarkable except as noted in HPI and below PMFSH Past Medical History Medical History (Updated 12/20/24 @ 09:08 by Brando Hutchinson MD) Colon cancer screening DEEP (obstructive sleep apnea) Rheumatoid arthritis PVC (premature ventricular contraction) HLA-B27 positive Anxiety Ankylosing spondylitis Social History Social History Smoking status: Never smoker Second hand tobacco smoke exposure: No Alcohol intake: current Drinks per week: 4 Substance use: never Substance use type: does not use Do You Feel Safe in your Home?: Yes Lack of Transportation: No Lack of Food: Never True Current Housing: I Have Housing Concerned About Future Housing: No Difficulty Paying Gas/Electric Bills: No Difficulty Paying for Meds: No Currently Unemployed: No Education: Master's Degree or Higher Difficulty w/ Childcare or Family Care: No Living arrangements: with family Occupation/Education: occupation Gender identity (if verbalized by the patient): Male Meds Home Medications and Allergies Home Medications ?Medication ?Instructions ?Recorded ?Confirmed ?Type metoprolol succinate 25 mg 7.5 mg PO DAILY 07/12/24 12/20/24 History tablet,extended release 24 hr Allergies Allergy/AdvReac Type Severity Reaction Status Date / Time No Known Allergies Allergy Mild Verified 12/20/24 08:18 Vital Signs Vital Signs - 24 hr 12/20/24 08:18 Temperature 98 F Pulse Rate 81 Respiratory Rate 20 Blood Pressure 104/79 Pulse Oximetry 100 Oxygen Delivery Room Air Exam Const: General: comfortable and no acute distress HENMT: Face/Nose/Sinus: Normal nares present Eyes: General: appearance normal, both eyes and all related structures Neck: Neck: no JVD Resp: Auscultation: clear to auscultation bilaterally Cardio: Rate: regular rate Rhythm: regular rhythm GI: Inspection: non-distended GI Palp: Yes Soft to palpation Skin: General skin exam: normal color Neuro: General: gait normal Speech: normal speech Extrem: General: normal to inspection Psych: Mental Status: mental status grossly normal Assessment and Plan Assessment and plan (1) Colon cancer screening: Code(s): Z12.11 - Encounter for screening for malignant neoplasm of colon Status: Acute Assessment and Plan: colonoscopy
[2024-12-20 09:22] VITALS: BP 95/59; PULSE 66; RESP 14; O2SAT 100
[2024-12-20 09:32] VITALS: BP 95/57; PULSE 65; RESP 19; O2SAT 100
[2024-12-20 09:42] VITALS: BP 101/67; PULSE 68; RESP 24; O2SAT 100
== END 2024-12-20 09:56 | disposition home or self-care (01) ==
PROVIDERS: PCP Family Medicine; Referring Provider Physician Assistant; Visit Provider Internal Medicine Gastroenterology
PROC: 0DJD8ZZ Inspection of Lower Intestinal Tract, Via Natural or Artificial Opening Endoscopic (ICD-10-PCS; CPT 45378; principal; 2024-12-20 09:30)
DX: Z12.11 Encounter for screening for malignant neoplasm of colon (principal)
CPT/HCPCS: 45378; J2003; J2704; J7120

== ENCOUNTER 2025-09-04 11:42 | Outpatient (CLI) | payer BC, SELFPAY ==
--- NOTE | ~2025-09-04 | XR_ITS ---
Lumbar spine series Indication: Ankylosing spondylitis Comparison: Lumbar spine radiographs 08/10/2016 Technique: 3 views lumbar spine Findings: 5 nonrib-bearing lumbar-type vertebral bodies. No acute fracture. No listhesis. Vertebral bodies normal height. Disc spaces maintained. Mild degenerative changes. Bilateral SI joint ankylosis. Sacrum intact. IMPRESSION: 1. No acute findings. Reviewed, dictated and finalized at location R. [employer] IMPRESSION: 1. No acute findings.
--- NOTE | ~2025-09-04 | XR_ITS ---
XR sacroiliac joints min 3V 09/04/2025 13:00 Indication: Ankylosing spondylitis Procedure: 3 view sacroiliac joints Comparison: No prior studies for comparison. Findings: There is partial symmetric bilateral ankylosis of the sacroiliac joints with mild degenerative changes along the inferior aspect of the SI joints. Sacral foramen are symmetric. 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 Reviewed, dictated and finalized at location O. 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
== END 2025-09-04 11:43 | disposition home or self-care (01) ==
LOC: MICIMG 11:46
PROVIDERS: PCP Physician Assistant; Visit Provider Physician Assistant
DX: M45.8 Ankylosing spondylitis sacral and sacrococcygeal region (principal)
CPT/HCPCS: 72100; 72202

== ENCOUNTER 2025-10-28 11:38 | Outpatient (CLI) | payer BC, SELFPAY ==
--- NOTE | ~2025-10-28 | XR_ITS ---
EXAMINATION: XR chest 2V 10/28/2025 11:51 INDICATION: Cough PROCEDURE: 2 view chest COMPARISON: 12/13/2005 FINDINGS: Heart size normal. Right lung clear. There are calcified granulomas in the left lung. No focal pneumonia, edema, pleural effusion or pneumothorax. There is apical pleural thickening/scarring. IMPRESSION: 1: NO ACUTE CARDIOPULMONARY DISEASE. Reviewed, dictated and finalized at location O. 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
== END 2025-10-28 11:39 | disposition home or self-care (01) ==
PROVIDERS: PCP Family Medicine; Visit Provider Physician Assistant
DX: R05.9 Cough, unspecified (principal)
CPT/HCPCS: 71046